=== PATIENT | male | born 1955 | race Caucasian/White ===

== ENCOUNTER 2016-07-11 17:01 | Emergency (ER) | payer OTHER ==
[~2016-07-11] VITALS: Ht 185.4 cm; Wt 88.2 kg
[~2016-07-11 17:01] MED LIST: ASPI-461 PO; CIPR1TAB10 PO; LANS30CA12 PO; METO25TA56 PO; OMEGCAP2 PO; SIMV20TA2 PO
[2016-07-11 17:06] VITALS: TEMP 36.6; Ht 185.4 cm; Wt 88.2 kg
[2016-07-11] MEDS ORDERED: IBUP-103 PO (17:15)
--- NOTE | 2016-07-11 17:59 | DIAGNOSTIC IMAGING REPORT ---
LEFT KNEE 3 VIEWS CLINICAL HISTORY: L knee pain and swelling trauma. Pain. COMPARISON: None. DISCUSSION: The bones and joint spaces appear intact. There is no evidence of fracture, dislocation or bony disease. There is no evidence for soft tissue swelling. IMPRESSION: Negative study. Electronically signed by: Adriel Gar M.D. 07/11/2016 5:58 PM
[2016-07-11 18:08] LABS: BASO % 0.3 %; BASO ABS # 0.02 K/uL (0-0.2); COMPLETE YES; EOS % 5.2 %; HEMATOCRIT 44.4 % (42-52); IG% 0.1 %; LYMPH ABS # 1.85 K/uL (1.2-3.4); MEAN CELL VOLUME 91.2 fL (80-100); MEAN CORPUSCULAR HEMOGLOBIN 30.8 pg (25-34); MEAN CORPUSCULAR HGB CONC 33.8 g/dl (32-36); MEAN PLATELET VOLUME 10.9 fL (7.4-10.4); MONO % 9.3 %; NEUT % 58.1 %; PLATELET COUNT 146 K/uL (130-400); RED BLOOD COUNT 4.87 M/uL (4.7-6.1); WHITE BLOOD COUNT 6.86 K/uL (4.8-10.8)
[2016-07-11 18:19] LABS: INR 1.1 (0.9-1.1); PARTIAL THROMBOPLASTIN RATIO 1.1; PROTHROMBIN TIME (PATIENT) 11.3 SECONDS (9.0-12.0)
[2016-07-11 18:24] LABS: BUN/CREATININE RATIO 18.9 (10-20); CALCIUM 8.8 mg/dl (8.5-10.1); CREATININE 0.79 mg/dl (0.60-1.40); POTASSIUM 3.7 mmol/L (3.5-5.1)
--- NOTE | 2016-07-11 18:29 | DIAGNOSTIC IMAGING REPORT ---
Venous Doppler left leg LEFT VENOUS DOPP LOWER EXT UNILAT CLINICAL HISTORY: LLE swelling pain. Edema. TECHNIQUE: Venous Doppler COMPARISON STUDY: None FINDINGS: Normal study IMPRESSION: Normal study Electronically signed by: Adriel Gar M.D. 07/11/2016 6:27 PM
[2016-07-11 18:45] VITALS: BP 131/78; PULSE 81; O2SAT 99
--- NOTE | 2016-07-13 00:59 | EMERGENCY ROOM VISIT NOTE ---
ED Visit Note First contact with patient: 17:31 I have personally seen and evaluated the patient with the PA. I agree with the diagnosis and management decisions and have been personally involved in the case. Please see Romel Mitchell PA-C's notes for further details of the history, physical and visit.
--- NOTE | 2016-07-21 10:17 | EMERGENCY ROOM VISIT NOTE ---
ED Visit Note First contact with patient: 17:31 Chief Complaint: Left knee pain and leg swelling. History of Present Illness: Mr. Benitez is a 60-year-old male who ambulates into the ED accompanied by his complaining of left knee pain and left lower leg swelling. Historically patient denies any significant past medical history. He does report he recently returned from a 10 hour car trip. Patient reports she started experiencing left knee pain 2 days ago. His has been mild. He denies any precipitating injury. Associated with his pain he has noted mild swelling of the knee. He describes his discomfort as an achy sensation. He is globally throughout the knee. He rates his discomfort 5/10. Pain is nonradiating. Pain worsens with ambulation and minimally with flexion. He has not taken any medication for pain prior to arrival at the hospital. Patient then goes on to reports that after 10 hour car ride today he noticed some swelling throughout his left calf. This is also associated with a mild discomfort that worsens with palpation and ambulation. He denies any previous history of calf swelling. She denies fevers, chills, sweats, upper respiratory tract symptoms, cough, wheezing, shortness of breath, chest pain/discomfort, palpitations, orthopnea, abdominal pain, decreased appetite, nausea, vomiting, lower extremity weakness/ numbness/tingling, recent surgery/extended travel, cramping and claudication. Review of Systems: As noted above in history of present illness. All body systems were reviewed and found to be negative as noted above. Past Medical History: Patient denies. Current Medications: Medications Dose Route/Sig Max Daily Dose Days Date Category Advil (Ibuprofen) 200 Mg Tab 400 Mg PO DAILY 07/11/16 Reported Fish Oil (Belle-3 Fatty Acids) 1 Cap Cap 1 Cap PO QPM 05/13/15 Reported Prevacid (Lansoprazole) 30 Mg Capcr 30 Mg PO QPM 05/13/15 Reported Zocor (Simvastatin) 20 Mg Tab 20 Mg PO HS 05/13/15 Reported Allergies to Medications: Penicillin. Social History: Patient is currently employed; he lives with his and feels safe in his home environment; he denies tobacco and alcohol use. Physical Examination: Vital Signs: Date Time Temp Pulse Resp B/P Pulse Ox O2 Delivery O2 Flow Rate FiO2 07/11/16 18:45 81 18 131/78 99 07/11/16 17:06 36.6 78 18 135/80 99 Room Air GENERAL: 60-year-old male in mild distress due to pain, nontoxic-appearing, afebrile and hemodynamically stable. NEUROLOGICAL: Awake, alert and oriented to person, place and time. Answering questions appropriately and following commands. Normal gait. Good hand eye coordination. No focal motor sensory deficits. SKIN: Warm, dry and pink. No soft tissue eruptions or trauma noted. HEENT: Atraumatic and normocephalic. THORAX: Lungs sounds are clear to auscultation and equal bilaterally with symmetrical chest wall. No wheezing, rales or rhonchi. No crepitus, tenderness , subcutaneous air or deformities noted. HEART: Regular rate and rhythm. No gallops, rubs or murmurs are appreciated. ABDOMEN: Obese, soft and nontender. Positive bowel sounds in all quadrants. No guarding, rigidity or organomegaly. LOWER EXTREMITIES: Moves all extremities well on command and with purpose. All distal neurovascular statuses are intact and equal bilaterally. Left Lower Leg: No gross bony deformity. Mild tenderness over the anterior aspect of the knee without bony deformity or crepitus. No laxity of the collateral or cruciate ligaments. Negative patellar apprehension test. Negative ballottement test. No tenderness over the medial joint line or lateral joint lines. No tenderness in the posterior knee. Starting at upper calf extending down into the foot is swelling. Mild tender spot in the posterior mid gastrocnemius. I did not appreciate any cords. Throughout the foot the skin was warm and pink and capillary refill is brisk. Distal pulses and sensations are intact. Full range of motion in flexion and extension of the knee and plantar flexion and dorsiflexion of the ankles against resistance. ED Course: Patient is assessed as noted above. Laboratory Testing: Test 07/11/16 17:50 Range/Units White Blood Count 6.86 4.8-10.8 K/uL Red Blood Count 4.87 4.7-6.1 M/uL Hemoglobin 15.0 14.0-18.0 g/dL Hematocrit 44.4 42-52 % Mean Corpuscular Volume 91.2 80-100 fL Mean Corpuscular Hemoglobin 30.8 25-34 pg Mean Corpuscular Hemoglobin Concent 33.8 32-36 g/dl Platelet Count 146 130-400 K/uL Mean Platelet Volume 10.9 7.4-10.4 fL Neutrophils (%) (Auto) 58.1 % Lymphocytes (%) (Auto) 27.0 % Monocytes (%) (Auto) 9.3 % Eosinophils (%) (Auto) 5.2 % Basophils (%) (Auto) 0.3 % Neutrophils # (Auto) 3.98 1.4-6.5 K/uL Lymphocytes # (Auto) 1.85 1.2-3.4 K/uL Monocytes # (Auto) 0.64 0.11-0.59 K/uL Eosinophils # (Auto) 0.36 0-0.5 K/uL Basophils # (Auto) 0.02 0-0.2 K/uL RDW Standard Deviation 45.8 36.4-46.3 fL RDW Coefficient of Variation 13.8 11.5-14.5 % Immature Granulocyte % (Auto) 0.1 % Immature Granulocyte # (Auto) 0.01 0.00-0.02 K/uL Prothrombin Time 11.3 9.0-12.0 SECONDS Prothromb Time International Ratio 1.1 0.9-1.1 Activated Partial Thromboplast Time 28.9 21.0-31.0 SECONDS Partial Thromboplastin Ratio 1.1 Sodium Level 143 136-145 mmol/L Potassium Level 3.7 3.5-5.1 mmol/L Chloride Level 106 98-107 mmol/L Carbon Dioxide Level 28 21-32 mmol/L Anion Gap 9.0 3-11 mmol/L Blood Urea Nitrogen 15 7-18 mg/dl Creatinine 0.79 0.60-1.40 mg/dl Est Creatinine Clear Calc Drug Dose 112.4 ml/min Estimated GFR () 113.1 Estimated GFR (Non- 97.6 BUN/Creatinine Ratio 18.9 10-20 Random Glucose 106 70-99 mg/dl Calcium Level 8.8 8.5-10.1 mg/dl Left Knee X-Rays: Was read by myself and the radiologist showing no acute fractures or dislocations. No bony disease or joint effusion. Left Lower Extremity Venous Doppler Ultrasound: Was reviewed by myself and read by the radiologist showing no deep vein thrombus and a normal study. Patient was offered pain medications and refused. Patient was reassessed multiple times during his stay in the emergency department. Patient's case was reviewed with Dr. Hebert; she apparently assessed the patient we agreed on diagnostic approach, treatment, disposition and plan. Patient was educated about clementinaight's findings and instructed on his treatment plan; he verbalizes understanding and agreement with this plan. Clinical Impression: Left knee pain. Left lower leg swelling. Decision-Making: Initially my differential diagnosis I considered knee sprain, knee fracture, knee dislocation, osteoarthritis, muscle strain, ligamentous sprain, superficial thrombophlebitis, DVT and other causes. Disposition: Patient discharged home in stable condition accompanied by her ; prior to departure she was reassessed and subjectively reported she was feeling much better and rated her discomfort 1/10. Plan: Patient was encouraged to continue her current medications as prescribed. Patient was encouraged to use appropriate ibuprofen or acetaminophen as needed for pain. Patient was encouraged to keep your leg/foot elevated while at rest. Patient was encouraged to use ice or heat as needed for comfort. Patient was encouraged to follow-up with your family physician on today's concerns but also a recheck of her blood pressure. Patient was encouraged return the ED for worsening/uncontrolled pain, worsening swelling, leg weakness/numbness/tingling or any new/concerning symptoms.
== END 2016-07-11 18:46 | disposition home or self-care (01) ==
LOC: C.EDB 17:02 → C.EDD 18:46
DX: M25.562 Pain in left knee (principal); M79.89 Other specified soft tissue disorders; Z79.899 Other long term (current) drug therapy

== ENCOUNTER → 2016-08-11 | Outpatient (CLI) | payer BC ==
[~2016-08-11] MED LIST changes: -ASPI-461 PO; -CIPR1TAB10 PO; +IBUP-103 PO; -METO25TA56 PO
== END | disposition home or self-care (01) ==
LOC: C.LABSPEC 12:33
PROVIDERS: ATTEND Internal Medicine
DX: R97.20 Elevated prostate specific antigen [PSA] (principal)

== ENCOUNTER → 2016-09-21 | Outpatient (CLI) | payer BC ==
[2016-09-21 13:48] LABS: % FREE PSA 25.6 %; FREE PSA 1.29 ng/ml; PROSTATE SPECIFIC ANTIGEN 5.03 ng/ml (0.000-4.000)
== END | disposition home or self-care (01) ==
LOC: C.LAB 11:50
PROVIDERS: ATTEND Urology
DX: R97.20 Elevated prostate specific antigen [PSA] (principal)

== ENCOUNTER → 2017-07-13 | Outpatient (CLI) | payer BC ==
[2017-07-13 18:05] LABS: BLOOD UREA NITROGEN 19 mg/dl (7-18); CALCIUM 8.6 mg/dl (8.5-10.1); CARBON DIOXIDE 28 mmol/L (21-32); CREATININE 0.95 mg/dl (0.60-1.40); GLUCOSE 85 mg/dl (70-99); POTASSIUM 3.9 mmol/L (3.5-5.1); SODIUM 137 mmol/L (136-145)
== END | disposition home or self-care (01) ==
LOC: C.LABSPEC 15:26
PROVIDERS: ATTEND Internal Medicine
DX: Z01.812 Encounter for preprocedural laboratory examination (principal)

== ENCOUNTER → 2017-07-14 | Outpatient (CLI) | payer BC ==
--- NOTE | 2017-07-14 08:17 | DIAGNOSTIC IMAGING REPORT ---
BRAIN COMBO HISTORY: 61 years-old Male SWENSON,RINGING EARS,R LEG NUMBNESS acute headache with right leg numbness COMPARISON: Brain MRI 06/08/2010, CT head 04/21/2014 TECHNIQUE: Multiplanar multisequence MRI the brain was obtained both with and without the use of 9 mL Gadavist. FINDINGS: There is no restricted diffusion to suggest acute infarction. The midline structures including the corpus callosum, brainstem, optic chiasm, pituitary gland and infundibulum and pineal gland are unremarkable in the sagittal T1 series. No cerebellar tonsillar herniation. Degenerative changes are seen within the imaged upper cervical spine. No acute intracranial hemorrhage, midline shift, intracranial mass abnormal extra-axial collections or hydrocephalus. Unchanged 3 mm focus of T2/FLAIR prolongation is seen within the subcortical left temporal lobe on image 14 series 7, likely of no clinical significance however may reflect gliosis from chronic migraines. Brain parenchyma otherwise is within normal limits. There is no abnormal intra-axial or extra-axial enhancement. Probable prominent perivascular space involves the inferior left lentiform nucleus, 8 mm. The scalp, calvarium and soft tissues are unremarkable. Mastoid air cells are clear. There is moderate left and mild right mucosal thickening of the maxillary sinuses. Mild to moderate ethmoid and mild sphenoid sinus disease also present. Orbits are symmetric. IMPRESSION: 1. No acute intracranial abnormality or abnormal enhancement. 2. Paranasal sinus disease as above. The above report was generated using voice recognition software. It may contain grammatical, syntax or spelling errors. Electronically signed by: Curtis Olivas M.D. 07/14/2017 8:16 AM Dictated Date/Time: 07/14/2017 8:00 AM
== END | disposition home or self-care (01) ==
LOC: C.MRI 07:12
PROVIDERS: ATTEND Internal Medicine
DX: R51 Headache (principal); H93.11 Tinnitus, right ear; R20.0 Anesthesia of skin; J32.9 Chronic sinusitis, unspecified

== ENCOUNTER → 2017-11-14 | Outpatient (CLI) | payer BC | END | disposition home or self-care (01) | LOC: C.LAB 16:58 | PROVIDERS: ATTEND Urology | DX: R97.20 Elevated prostate specific antigen [PSA] (principal) ==